=== PATIENT | female | born 1970 | race Caucasian/White ===

== ENCOUNTER → 2016-11-26 | Outpatient (CLI) | payer MEDICARE, OTHER ==
[~2016-11-26] MED LIST: ADVAIR 100-501 EAC1 IH; ALBUTEROL INHALER PO; ALBUTEROL17 GM INH; ALPRAZOLAM; AUGMENTIN; AUGMENTIN PO; BENZONATATE PO; DOXYCYCLINE150 MG PO; GLUCOPHAGE XR500 MG; GUAIFENESIN200 M1 PO; KLONOPIN; LASIX; LASIX PO; LIPITOR; LIPITOR PO; LORTAB 10/500 T1 TAB PO; LORTAB 7.5-5001 TAB PO; MOTRIN100 MG PO; PEN-VEE K PO; PHENERGAN DM1 ML PO; PREDNISONE PO; PREDNISONE10 MG/DOSE PO; PRENATAL MULITV1 TAB; PRENATAL1 TA1 PO; PROVENTIL INH0.5 ML; SEROQUEL; SEROQUEL PO; STOOL SOFTENER250 MG PO; SUDAFED30 M1 PO; TESSALON200 MG PO; VIBRAMYCIN100 M1 PO; VOLTAREN75 MG PO; ZOFRAN PO; ZOLOFT
--- NOTE | ~2016-11-26 | CR93 ---
[facility] A Service of [facility] & [facility] RADIOLOGY TEXT RESULTS PATIENT: DONN HUDSON LOCATION: [facility] : 70 UNIT #: [id number] AGE: [address]: DOREEN EVERETT APRN SEX: F ORDER DR: [id number] [facility] [address] [place], [place] [address] [id number] O MR#: [id number] Acc #: [id number] NAME: DONN HUDSON : 1970 SEX: F STUDY DATE/TIME: 11/26/2016 9:35 UNIT: [facility] ROOM: STUDY DESCRIPTION: CR Elbow Min 3 Views Lt Attending Physician: Doreen Everett Aprn Ordering Physician: Physician Non-Staff Primary Care Physician: [facility], MEDICAL IMAGING REPORT This report is preliminary unless electronic signature is present EXAM Left elbow 3 views 11/26/2016. HISTORY Left elbow pain and swelling for 2 weeks with no known injury. FINDINGS AP and lateral examination of the left elbow shows satisfactory articulation of the humerus with the proximal radius and ulna. There is no identifiable fracture, dislocation, joint effusion, or radiopaque foreign body in the soft tissues. IMPRESSION Normal left elbow. Dictated by... Santos Carrington M.D. THIS IS AN ELECTRONICALLY VERIFIED REPORT Santos Carrington M.D. at 11/26/2016 4:58 PM KRT/gz TD: 11/26/2016 13:59 JOB #: [id number] MEDICAL IMAGING REPORT COPY
== END | disposition home or self-care (01) ==
LOC: CRAD 08:55
DX: M25.522 Pain in left elbow (principal)
CPT/HCPCS: 73080

== ENCOUNTER → 2016-12-16 | Outpatient (CLI) | payer MEDICARE, OTHER | END | disposition home or self-care (01) | LOC: CECH 13:03 | DX: R06.02 Shortness of breath (principal) | CPT/HCPCS: 93306 ==

== ENCOUNTER 2017-01-16 13:30 | Emergency (ER) | payer MEDICARE, OTHER | END 2017-01-16 14:22 | disposition home or self-care (01) | LOC: CFTX 13:30 | DX: K04.7 Periapical abscess without sinus (principal); K02.9 Dental caries, unspecified; I11.0 Hypertensive heart disease with heart failure; I50.9 Heart failure, unspecified; E11.9 Type 2 diabetes mellitus without complications; J44.9 Chronic obstructive pulmonary disease, unspecified; F17.210 Nicotine dependence, cigarettes, uncomplicated | CPT/HCPCS: 99283 ==

== ENCOUNTER → 2017-05-26 | Outpatient (CLI) | payer OTHER ==
--- NOTE | ~2017-05-26 | CR20 ---
[facility] A Service of [facility] & [facility] RADIOLOGY TEXT RESULTS PATIENT: DONN HUDSON LOCATION: [facility] : 70 UNIT #: [id number] AGE: [address]: DELORES EVERETT APRN SEX: F ORDER DR: [id number] [facility] [address] [place], [place] [address] [id number] O MR#: [id number] Acc #: [id number] NAME: DONN HUDSON : 1970 SEX: F STUDY DATE/TIME: 05/26/2017 12:30 UNIT: [facility] ROOM: STUDY DESCRIPTION: CR Ankle Min 3 Views Lt Attending Physician: Delores Everett Aprn Referring Physician: Delores Everett Aprn Ordering Physician: Physician Non-Staff [facility] RE[facility] This report is preliminary unless electronic signature is present EXAM Left ankle 3 views, 05/26/2017 HISTORY Left ankle pain for 1 year and no known injury. FINDINGS Three views of the left ankle demonstrate no fracture. The bones are normally mineralized and the ankle mortise is intact. There is a 1 cm plantar calcaneal spur. There is no soft tissue abnormality. IMPRESSION Plantar calcaneal spur. Otherwise negative left ankle. Dictated by... Santos Carrington M.D. THIS IS AN ELECTRONICALLY VERIFIED REPORT Santos Carrington M.D. at 05/27/2017 7:56 AM KRT/sammy TD: 05/26/2017 16:45 JOB #: [id number] MEDICAL IMAGING REPORT Page 1 of 1 COPY
== END | disposition home or self-care (01) ==
LOC: CRAD 12:08
DX: M25.572 Pain in left ankle and joints of left foot (principal); M77.32 Calcaneal spur, left foot
CPT/HCPCS: 73610

== ENCOUNTER 2017-06-04 06:12 | Emergency (ER) | payer MEDICARE, OTHER ==
[~2017-06-04] VITALS: Ht 162.6 cm; Wt 163.3 kg
--- NOTE | ~2017-06-04 | CR72 ---
[facility] A Service of [facility] & [facility] RADIOLOGY TEXT RESULTS PATIENT: DONN HUDSON LOCATION: [facility] : 70 UNIT #: [id number] AGE: [address]: Casey Butts DO SEX: F ORDER DR: [id number] [facility] [address] [place], [place] [address] [id number] E MR#: [id number] Acc #: [id number] NAME: DONN HUDSON : 1970 SEX: F STUDY DATE/TIME: 06/04/2017 7:07 UNIT: [facility] ROOM: STUDY DESCRIPTION: CR Chest Single View Portable Attending Physician: Casey Butts D.O. Ordering Physician: Casey Butts D.O. Primary Care Physician: [facility] MEDICAL IMAGING REPORT This report is preliminary unless electronic signature is present EXAM Portable chest radiograph INDICATION Cough, shortness breath and congestion for 1 week. FINDINGS Comparison is made to a prior study from August 29, 2013. Cardiomegaly is identified. Do think the patient may have some vascular congestion. Certainly there is extensive interstitial prominence. No pneumothorax is identified. There is some blunting of the costophrenic angles bilaterally. Similar findings were present with it in June of 2013. This may simply reflect some chronic scarring but trace effusions is not excluded. Dictated by... Elham Castro M.D. THIS IS AN ELECTRONICALLY VERIFIED REPORT Elham Castro M.D. at 06/05/2017 1:02 PM AFF/rnr TD: 06/05/2017 01:32 JOB #: [id number] MEDICAL IMAGING REPORT Page 1 of 1 COPY
== END 2017-06-04 08:00 | disposition home or self-care (01) ==
LOC: CED 06:12
DX: J44.9 Chronic obstructive pulmonary disease, unspecified (principal); I10 Essential (primary) hypertension; E78.5 Hyperlipidemia, unspecified; F17.200 Nicotine dependence, unspecified, uncomplicated
CPT/HCPCS: 71010; 94640; 99285; J2920

== ENCOUNTER 2017-06-04 14:50 | Emergency (ER) | payer MEDICARE, OTHER ==
[~2017-06-04] VITALS: Ht 162.6 cm; Wt 163.3 kg
[2017-06-04 17:28] LABS: BASOPHIL# 0.2 X10e3 (0-0.3); BASOPHIL% 1.8 % (0-2.5); DIFF IND NO; EOSINOPHIL# 0.3 X10e3 (0-0.7); EOSINOPHIL% 2.7 % (0.0-7.0); HEMATOCRIT 47.7 % (35.0-45.0); HEMOGLOBIN 15.7 gm/dL (12.0-16.0); LYMPHOCYTE# 2.8 X10e3 (1.0-3.5); MEAN CELL VOLUME 93.4 FL (83-96); MEAN CORPUSCULAR HEMOGLOBIN 30.7 PG (28-34); MEAN CORPUSCULAR HGB CONC 32.8 g/dL (30-36); MEAN PLATELET VOLUME 10.5 FL (6.5-11.5); MONOCYTE# 0.7 X10e3 (0-1.0); MONOCYTE% 5.8 % (3.0-12.0); NEUTROPHIL# 8.7 X10e3 (1.5-7.1); NEUTROPHIL% 67.7 % (40-75); PLATELET COUNT 156 X10e3 (140-420); RED BLOOD COUNT 5.11 X10e (3.90-5.30); RED CELL DISTRIBUTION WIDTH 15.3 % (11.0-15.5); WHITE BLOOD COUNT 12.8 X10e3 (4.0-10.5)
[2017-06-04 17:38] LABS: BUN/CREATININE RATIO 17.14; CALCIUM SERUM 9.6 mg/dL (8.4-10.2); CREATININE SERUM 0.7 mg/dL (0.6-1.4); GLOM FILT RATE Estimated 103.2 mL/min (>60)
== END 2017-06-04 20:37 | disposition home or self-care (01) ==
LOC: CED 14:50
PROVIDERS: Emergency Medicine
DX: J20.9 Acute bronchitis, unspecified (principal); E11.9 Type 2 diabetes mellitus without complications; I10 Essential (primary) hypertension
CPT/HCPCS: 36415; 80048; 83880; 85025; 94640; 99285